=== PATIENT | female | born 1980 | race Two or more races ===

== ENCOUNTER 2016-10-22 17:59 | Emergency (ER) | payer MEDICAID, OTHER ==
--- NOTE | 2016-10-22 18:46 | C.PDOC ---
History Of Present Illness 36 year old female presents to the ED with complaints of bilateral leg pain that occurs only at night for the last three months. Currently has no pain or discomfort. Patient is 30 weeks and is regularly evaluated by OB. Spoke to OB regarding leg pain and was given compression socks but patient felt they were ineffective and stopped wearing them. Patient denies trauma, swelling , back pain, change in sensation, or shortness of breath. Time Seen by Provider: 10/22/16 18:13 Chief Complaint (Nursing): Lower Extremity Problem/Injury History Per: Patient History/Exam Limitations: no limitations Onset/Duration Of Symptoms: Persistent (3 months ) Current Symptoms Are (Timing): Still Present Recent travel outside of the [place]: No Additional History Per: Prior Records Past Medical History Reviewed: Historical Data, Nursing Documentation, Vital Signs Vital Signs: Last Vital Signs Temp 97.9 F 10/22/16 19:32 Pulse 95 H 10/22/16 19:32 Resp 20 10/22/16 19:32 BP 100/63 10/22/16 19:32 Pulse Ox 100 10/22/16 22:32 Family History: States: Unknown Family Hx - Social History Hx Alcohol Use: No Hx Substance Use: No - Immunization History Hx Tetanus Toxoid Vaccination: Yes Hx Influenza Vaccination: No Hx Pneumococcal Vaccination: No Review Of Systems Constitutional: Negative for: Fever Cardiovascular: Negative for: Chest Pain Respiratory: Negative for: Shortness of Breath Musculoskeletal: Positive for: Leg Pain (bilaterally, only at night ) Physical Exam - Physical Exam Appears: Non-toxic, No Acute Distress Skin: Warm, Dry Head: Atraumatic Eye(s): bilateral: Normal Inspection, EOMI Oral Mucosa: Moist Neck: Normal ROM, Supple Chest: Symmetrical Cardiovascular: Rhythm Regular Respiratory: Normal Breath Sounds, No Accessory Muscle Use Extremity: Normal ROM, No Tenderness, No Pedal Edema, No Calf Tenderness, Capillary Refill (good capillary refill, less than two seconds ), No Swelling, Other (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 Case discussed with Dr. Morejon and agrees on plan and discharge. Disposition - Disposition Disposition: HOME/ ROUTINE Disposition Time: 18:44 Condition: GOOD Additional Instructions: Follow up with primary medical doctor in 1-3 days without fail for further evaluation. Take medications as prescribed. Return to the emergency department at any time if symptoms persist or worsen. Prescriptions: Acetaminophen [Tylenol 325mg tab] 650 mg PO Q4 PRN #20 tab PRN Reason: Pain, Mild (1-3) Instructions: Leg Cramps (ED) Forms: [employer] (Greenlandic) - Clinical Impression Clinical Impression: Leg cramps in - Scribe Statement The provider has reviewed the documentation as recorded by the Scribe Kimberli Herrera All medical record entries made by the Scribe were at my direction and personally dictated by me. I have reviewed the chart and agree that the record accurately reflects my personal performance of the history, physical exam, medical decision making, and the department course for this patient. I have also personally directed, reviewed, and agree with the discharge instructions and disposition.
[2016-10-22 19:33] VITALS: BP 100/63; PULSE 95; RESP 20; TEMP 97.9
[2016-10-22 22:28] VITALS: O2SAT 100
== END 2016-10-22 19:33 | disposition home or self-care (01) ==
LOC: C.ER 17:59
DX: O26.893 Other specified pregnancy related conditions, third trimester (principal); R25.2 Cramp and spasm; Z3A.30 30 weeks gestation of pregnancy